=== PATIENT | female | born 1965 | race Caucasian/White ===

== ENCOUNTER → 2025-01-10 12:04 | Outpatient (REF) | payer OTHER, SELFPAY | LOC: DHSLP 12:04 | PROVIDERS: ATTENDING PHYSICIAN Nurse Practitioner; FAMILY PHYSICIAN Student in an Organized Health Care Education/Training Program | DX: G47.30 Sleep apnea, unspecified (principal); R06.83 Snoring | CPT/HCPCS: 95800 ==